=== PATIENT | female | born 1995 | race Asian ===

== ENCOUNTER 2019-07-12 13:10 | Emergency (ER) | payer BC ==
[~2019-07-12] VITALS: Ht 160 cm; Wt 59.0 kg
[2019-07-12] MEDS ORDERED: KETOROLAC TROMETHAMINE INJ 60 MG/2 ML VIAL IM ONE (13:30)
[2019-07-12] MEDS ORDERED: KETOROLAC TROMETHAMINE INJ 30 MG/ML VIAL ONE (13:56)
--- NOTE | 2019-07-12 14:00 | NUR ---
PT [id number]. AMBULATORY. C/O worsening lower back pain since that started thursday. VSS. No acute distress noted. will continue to monitor.
--- NOTE | 2019-07-12 15:08 | NUR ---
Patient discharged to home in stable condition. Written and verbal after care instructions given. Patient verbalizes understanding of instruction and RX.. pt ambulatory with a steady gait. vss.
[2019-07-12 15:11] VITALS: BP 118/70
== END 2019-07-12 15:11 | disposition home or self-care (01) ==
LOC: ER 13:12
DX: S39.012A Strain of muscle, fascia and tendon of lower back, initial encounter (principal); X58.XXXA Exposure to other specified factors, initial encounter; Y93.89 Activity, other specified; Y92.89 Other specified places as the place of occurrence of the external cause; Y99.8 Other external cause status
CPT/HCPCS: 84703; 96372; 99283; J1885; J7030

== ENCOUNTER 2019-07-12 19:45 | Emergency (ER) | payer BC, OTHER ==
[~2019-07-12] VITALS: Ht 160 cm; Wt 59.0 kg
--- NOTE | 2019-07-12 20:23 | NUR ---
B ROSANNA GARVEY IN ROOM EVALUATING THE PT.
[2019-07-12] MEDS ORDERED: CYCLOBENZAPRINE 10 MG TABLET PO ONE (20:30)
[2019-07-12] MEDS ORDERED: KETOROLAC TROMETHAMINE INJ 30 MG/ML VIAL IV ONE (20:30)
[2019-07-12] MEDS ORDERED: IV NS 0.9% 1,000 ML BAG IV ONE (20:30)
[2019-07-12] MEDS ORDERED: KETOROLAC TROMETHAMINE INJ 30 MG/ML VIAL ONE (20:34)
[2019-07-12] MEDS ORDERED: CYCLOBENZAPRINE 10 MG TABLET ONE (20:34)
--- NOTE | 2019-07-12 21:35 | NUR ---
PT REC'D WATER AND IS TOLERATING PO WELL.
--- NOTE | 2019-07-12 22:08 | NUR ---
B MARE, PAC IS AT THE BEDSIDE.
[2019-07-12 22:14] VITALS: BP 113/73
== END 2019-07-12 22:15 | disposition home or self-care (01) ==
LOC: ER 19:47
DX: S39.012A Strain of muscle, fascia and tendon of lower back, initial encounter (principal); R42 Dizziness and giddiness; X58.XXXA Exposure to other specified factors, initial encounter; Y93.89 Activity, other specified; Y92.89 Other specified places as the place of occurrence of the external cause; Y99.8 Other external cause status
CPT/HCPCS: 87804 ×2; 96361; 96374; 99283; J1885; J7030

== ENCOUNTER 2020-02-03 13:55 | Outpatient (CLI) | payer BC, OTHER ==
[2020-02-04 20:06] LABS: H. PYLORI AB IgA <9.0 units (0.0-8.9)
== END 2020-02-03 23:59 | disposition home or self-care (01) ==
LOC: LAB 13:55
PROVIDERS: ATTEND Family Medicine
DX: K21.9 Gastro-esophageal reflux disease without esophagitis (principal); K92.1 Melena
CPT/HCPCS: 36415; 86677; 87045-TC

== ENCOUNTER 2020-05-02 10:07 | Outpatient (CLI) | payer BC, OTHER ==
[2020-05-02 11:32] LABS: BASOPHILS # (AUTO) 0.1 /CMM (0.0-0.2); BASOPHILS % (AUTO) 0.9 % (0.0-2.0); EOSINOPHILS % (AUTO) 0.8 % (0.0-6.0); HEMATOCRIT 40 % (33-45); LYMPHOCYTES # (AUTO) 1.8 /CMM (0.8-4.8); LYMPHOCYTES % (AUTO) 31.4 % (20.0-44.0); MEAN CORPUSCULAR HGB CONC 33 g/dl (31.0-36.0); MEAN CORPUSCULAR VOLUME 87 fL (82-100); MONOCYTES # (AUTO) 0.3 /CMM (0.1-1.30); MONOCYTES % (AUTO) 4.4 % (2.0-12.0); NEUTROPHILS # (AUTO) 3.6 /CMM (1.8-8.9); NEUTROPHILS % (AUTO) 62.5 % (43.0-81.0); PLATELET COUNT (AUTO) 246 /CMM (150-450); RED BLOOD CELL COUNT(AUTO) 4.56 MIL/uL (4.0-5.2); WHITE BLOOD COUNT (AUTO) 5.8 K/uL (4.3-11.0)
[2020-05-02 11:42] LABS: BILIRUBIN,URINE NEGATIVE (NEGATIVE); BLOOD, URINE TRACE-INTA Ery/uL (NEGATIVE); COLOR,URINE YELLOW (YELLOW); LEUKOCYTE ESTERASE ,URINE NEGATIVE (NEGATIVE); NITRITE, URINE NEGATIVE (NEGATIVE); PROTEIN,URINE NEGATIVE (NEGATIVE); UGLUCOSE NEGATIVE (NEGATIVE); UROBILINOGEN,URINE 0.2 EU/dL (0.2)
[2020-05-02 11:59] LABS: ALBUMIN 4.1 g/dL (3.4-5.0); BILIRUBIN,TOTAL 0.3 mg/dL (0.2-1.0); CALCIUM, SERUM 9.2 mg/dL (8.5-10.1); CREATININE 0.6 mg/dL (0.6-1.3); POTASSIUM 3.6 mmol/L (3.5-5.1); TOTAL PROTEIN, SERUM 8.4 g/dL (6.4-8.2)
[2020-05-02 12:06] LABS: THYROID STIMULATING HORMONE 0.972 uIU/mL (0.358-3.74)
[2020-05-02 13:04] LABS: BACTERIA,URINE None seen /HPF (None Seen); SQUAMOUS EPITHELIAL CELL,UR Few /HPF (None Seen); WBC,URINE NONE SEEN /HPF (0-3)
== END 2020-05-02 23:59 | disposition home or self-care (01) ==
LOC: LAB 10:07
PROVIDERS: ATTEND Family Medicine
DX: E55.9 Vitamin D deficiency, unspecified (principal); Z00.01 Encounter for general adult medical examination with abnormal findings
CPT/HCPCS: 36415; 80053-TC; 80061-TC; 81000-TC; 82306; 84439-TC; 84443-TC; 85025-TC